=== PATIENT | male | born 1995 | race Caucasian/White ===

== ENCOUNTER 2024-05-31 07:59 | Outpatient (REF) | payer OTHER, SELFPAY ==
[2024-05-31 10:20] LABS: Platelet Count 330 X10*3/uL (160-400)
[2024-05-31 11:24] LABS: Creatinine Urine 175.96 mg/dL; Microalbum/Creatinine Ratio Ur 2.8 ug/mg cr (<30)
[2024-05-31 12:13] LABS: Alanine Aminotransferase 77 U/L (0-40); Albumin Level 4.5 g/dL (3.5-5.0); Alkaline Phosphatase 94 U/L (39-117); Anion Gap 10 (12-20); Aspartate Amino Transferase 46 U/L (5-37); Blood Urea Nitrogen 17 mg/dL (9-16); Calcium 9.3 mg/dL (8.4-10.2); Carbon Dioxide 25 mmol/L (22-29); Chloride 109 mmol/L (96-108); Cholesterol 205 mg/dL (<200); Estimated Glomerular Filt Rate > 60; Glucose Random 73 mg/dL (60-115); HDL Cholesterol 38 mg/dL (>40); LDL Cholesterol Calculated 158 mg/dL (<100); Potassium 4.3 mmol/L (3.3-5.1); Sodium 140 mmol/L (135-145); Triglycerides 47 mg/dL (<150)
[2024-05-31 12:29] LABS: Bilirubin Total 0.3 mg/dL (0.0-1.0)
[2024-06-01 22:48] LABS: LDL Cholesterol Direct 171 mg/dL (<100)
== END 2024-05-31 08:00 | disposition home or self-care (01) ==
LOC: HO.LAB 07:59
PROVIDERS: Visit Provider Student in an Organized Health Care Education/Training Program
DX: E10.65 Type 1 diabetes mellitus with hyperglycemia (principal)
CPT/HCPCS: 36415; 80053; 80061; 82043; 82570; 82947; 83036; 83721; 84443; 85049; 99202

== ENCOUNTER 2024-05-31 07:59 | Outpatient (AMB) | payer OTHER, SELFPAY ==
--- NOTE | 2024-05-31 08:01 | MHC.OFFVIS ---
Vital Signs 05/31/24 08:04 Height 5 ft 10 in Weight 225 lb 15.581 oz BMI 32.4 BP 124/76 Blood Pressure Location Lt brachial Position Sitting Pulse 98 Pulse Source Pulse Oximeter Intake Visit Reasons: Type 1 DM Intake Note: New patient present today for Type 1 Diabetes Mellitus. Last Diabetic eye exam: 2022 Last Podiatry Visit: Doesn't have one Random Glucose: 72 mg/dl HgA1C: 7.5% Steam Fitter Required: No Accompanied by: Self / Same As Patient Allergies sulfamethoxazole [From Bactrim] Allergy (Mild, Verified 05/31/24 08:09) rash trimethoprim [From Bactrim] Allergy (Mild, Verified 05/31/24 08:09) rash Medication List - Last Reconciled 05/31/24 by Yeny Cox MD insulin degludec (Tresiba FlexTouch U-100 insulin) 5 units subcut DAILY insulin lispro (Humalog KwikPen (U-100) Insulin) 5 units subcut TID HPI Comments Details: 29-year-old with Type 1 DM here today to establish care. History of diabetes Diagnosed at 3 years of age Was previously following with [facility] endocrinology ,doesnt remember name Last visit was Prior therapy: Used to be on the pump 18 or 20 years ago, and then again tried in 2014 and says says he couldnt make sense of any of it Current regimen: Tresiba 40 units daily in the morning (sometimes spilts it up) , forgets also sometimes Humalog Kwikpen 1:8 carb ratio , says he uses up to 80 units in a day of humalog when corrections are included When we mention that he doesnt have a meter so how does he do corrections I feel it in my head like I can feel it when its 300 Denies any symptoms of hyperglycemia including polyphagia, polyuria, polydipsia. Denies any hypoglycemic symptoms. has hypoglycemic awareness and symptoms in 70s. Last severe hypoglycemic episode : 2 months ago passed out blood sugar in the 30s , required help Says no other episodes SMBG's No meter Last checked blood sugar months ago, lost my meter Complications Eye exam: Last eye exam was 2022. No retinopathy Neuropathy: No neuropathy Kidney disease: no history Macrovascular complications: No history of macrovascular complications. A1c poc today 7.5% Statin:no MELVIN/ARB: no Weight : 225 lbs , stable Exercise: active at work , goes to gym two times a week ? sometimes not at all , irregular Diet control: Breakfast : 3 times a week : chinese muffin with cream cheese Lunch : variable time between work pizza mostly, a large pizza , soda sometimes diet coke Dinner : lava cakes , parmesan bites whatever from work He has never had any hospitalizations for hyperglycemia/hypoglycemia. 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 Was in [employer] for [employer] but dropped out during covid Lives with mom and step dad Physical exam General: sitting comfortably in no acute distress HEENT: normocephalic/atraumatic, moist oral mucosa Neck: supple, symmetrical Cardiac: normal heart sounds Pulm: normal breath sounds B/L, no added breath sounds Abd: not distended, no tenderness Extremities: no edema, no signs of myxedema Neuro: AAO x3, Speech: normal, no facial droop, moving all 4 extremities Skin: no rash Foot exam: intact sensation to monofilament, intact pulses, intact vibration [facility] Medical History (Updated 05/31/24 @ 09:20 by Yeny Cox MD) Type 1 diabetes mellitus Physical Exam Vital Signs: Last Vital Signs Pulse 98 05/31/24 08:04 BP 124/76 05/31/24 08:04 BMI result Body Mass Index 32.4 Results AMB Hemoglobin A1c AMB Hemoglobin A1c 7.5 % Last Edit by SHRUTHI Cao on 05/31/24 08:54 Results Reviewed Results Reviewed: Laboratory Last Values Glucose (Clinic) 72 mg/dL (60-115) 05/31/24 08:12 Assessment & Plan Assessment & Plan (1) Type 1 diabetes mellitus: Code(s): E10.9 - Type 1 diabetes mellitus without complications Category: Medical Qualifiers: Diabetes mellitus complication status: with hyperglycemia Qualified Code(s): E10.65 - Type 1 diabetes mellitus with hyperglycemia Plan: 29-year-old male with past medical history significant for celiac disease, bipolar disorder, type 1 diabetes mellitus without any long-term complications, who is coming in today to establish care, was diagnosed with type 1 diabetes mellitus at the age of 3. His A1c today 7.5%. A1c from January 2024 was 6.4%. He has clearly had worsened control recently. However I do not have any data for him today, he has not been checking his blood sugars. A large part of the visit was spent providing education to the patient regarding complications of hyperglycemia complications and risks of hypoglycemia, risk of injecting insulin without checking blood sugars, hypoglycemia education, DKA education, importance of adherence to medications. He seems to have a lot of hesitation regarding new technology but he is willing to try. He has been on insulin pump before but that was at least last 10 years ago. I reassured him that there is a lot of more sophisticated now with Diabetes technology and he is willing to give it a chance. I will have him see our clinical document improvement educator for evaluation for insulin pump. He would be a good candidate for ilet or Omnipod 5. I will also have him see our hvac controls technician. He does not he have any prescriptions currently nodule in a prescription for a meter. All prescriptions for insulin, glucose monitoring supplies, ketone strips, dextrose tablets, glucagon, CGM device sent to pharmacy. Plan: -continue Tresiba 40 units daily -continue Humalog with carb ratio 1:8, and asked him to restart using his previous correction factor of 01:20 for now. -follow up in 2 weeks with glucometer data by checking blood sugars 4 times a day for us to adjust his insulin -clinical document improvement educator referral placed -nutrition referral placed -overdue for eye visit, no history of retinopathy, reiterated to him to reestablish with a his eye doctor -does not see soundscriber mechanic, foot exam unremarkable today -ordered lipid panel, urine microalbumin, platelets, comprehensive metabolic panel, TSH Plan I spent 60 minutes in reviewing the record, seeing the patient and documenting in the medical record. Orders: Orders Lipid Panel Today E10.9 - Type 1 diabetes mellitus without complications Microalbumin, Random (w Creat) Today E10.9 - Type 1 diabetes mellitus without complications TSH reflex Free T4 Today E10.9 - Type 1 diabetes mellitus without complications Platelet Count Today E10.9 - Type 1 diabetes mellitus without complications AMB Hemoglobin A1c Today E10.9 - Type 1 diabetes mellitus without complications, Z13.9 - Encounter for screening, unspecified LDL Cholesterol Direct Today E10.9 - Type 1 diabetes mellitus without complications Comprehensive Met. Panel Today E10.9 - Type 1 diabetes mellitus without complications Referrals Diabetes Education Referral E10.9 - Type 1 diabetes mellitus without complications Patient Transport Officer Nutrition Referral E10.9 - Type 1 diabetes mellitus without complications Medications: New blood-glucose meter,continuous (Dexcom G7 Ota) As directed every 10 days Diagnosis code E10.9 1 ea 0RF blood-glucose meter (OneTouch Verio Flex Meter) As directed check blood sugar four times a day Diagnosis code E10.9 1 ea 0RF acetone (urine) test (Ketone Care strips) As directed check urine when blood sugar greater than 250 mg/dl Diagnosis code E10.9 100 ea 3RF pen needle, diabetic (BD Ultra-Fine Micro Pen Needle) As directed to inject insulin 4 times a day 200 ea 3RF insulin lispro (Humalog KwikPen (U-100) Insulin) up to 80 units subcutaneously 3 times a day; 15 mL 2RF glucagon 3 mg/actuation 3 mg intranasal ONCE 2 ea 1RF lancets (Pepperfry.comTouch Delica Plus Lancet) As directed check blood sugar four times a day Diagnosis code E10.9 100 ea 5RF blood-glucose sensor (Dexcom G7 Sensor device) As directed every 10 days Diagnosis code E10.9 6 ea 5RF blood sugar diagnostic (OneTouch Verio test strips) As directed check blood sugar four times a day Diagnosis code E10.9 100 ea 4RF dextrose until symptoms of low blood sugar are controlled 4 grams (4 x 1 gram) PO Q15M PRN 60 tabs 2RF hypoglycemia insulin degludec (Tresiba FlexTouch U-100 insulin) 40 units (0.4 mL) subcut DAILY 45 mL 1RF Patient Instructions: Check blood sugars daily four times a day fasting and premeals Check premeal 15 mins prior to eating and give bolus insulin 15 mins before eating Continue Tresiba 40 units daily for now till we adjust based on readings Humalog carb ratio 1:8 and correction 1:20 for now till we adjust Come back in 2 weeks with your meter so we can check the readings Please bring your meter to every appointment with me and educater See clinical document improvement educator See hvac controls technician See eye doctor Rule of 15 Treatment for Hypoglycemia (Low blood sugar) If your blood glucose is low (70 and below)*, follow the steps below to treat: Eat or drink something from the list below equal to 15 grams of carbohydrate (carb). Rest for 15 minutes Re-check your blood glucose. If it is still low, (below 70), repeat step 1 above. ? If your next meal is more than an hour away, you will need to eat one carbohydrate choice as a snack to keep your blood glucose from going low again. ?If you can't figure out why you have low blood glucose, call your healthcare provider, as your medicine may need to be adjusted. ?Always carry something with you to treat an insulin reaction. Use food from the list below. ? Foods equal to One Carbohydrate Choice (15 grams of carbohydrate): 3 Glucose ?tablets or 4 Dextrose tablets 4 ounces of fruit juice 5-6 ounces (about 1/2 can) of regular soda such as Coke or Pepsi ? 7-8 gummy or regular Life Savers ? 1 Tbsp. of sugar or jelly NOTE: If your blood sugar is less than 50, double the portion above for a total of 30 gm. ?Carbohydrate. ? Follow meal plan of 45-60 g of consistent carbohydrates at 3 meals each day and 15 g of carbohydrate at 1-2 snacks each day. Ketone strips sent Coding Level of Care Code New Pt Level 5 (75573) Complex EM visit Add On G2211 Diagnoses Type 1 diabetes mellitus with hyperglycemia E10.65 Diabetes mellitus complication status: with hyperglycemia Time Spent (min) 60
[2024-05-31 08:04] VITALS: BP 124/76; PULSE 98; BMI 32.4
[2024-05-31 08:16] LABS: Glucose, Whole Blood 72 mg/dL (60-115)
== END 2024-05-31 09:12 | disposition home or self-care (01) ==
PROVIDERS: Visit Provider Student in an Organized Health Care Education/Training Program
DX: E10.9 Type 1 diabetes mellitus without complications (principal); E10.65 Type 1 diabetes mellitus with hyperglycemia; Z13.9 Encounter for screening, unspecified
CPT/HCPCS: 99205; G2211

== ENCOUNTER 2024-06-08 13:12 | Outpatient (AMB) | payer OTHER, SELFPAY ==
--- NOTE | 2024-06-08 13:16 | A.OFFVIS_ITS ---
VS Expanded 06/08/24 13:17 Height 5 ft 10 in Weight 227 lb 2.5 oz BMI 32.6 Intake Visit Reasons: Type 1 diabetes mellitus without complications Allergies sulfamethoxazole [From Bactrim] Allergy (Mild, Verified 05/31/24 08:09) rash trimethoprim [From Bactrim] Allergy (Mild, Verified 05/31/24 08:09) rash Nutrition Presentation Details: Pt presents for MNT for T1DM dx around the age of 3 yo. Pt was referred by senior stock plan administrator Pt reports in the past was ordering foods from [employer] Typical meal routine B: egg sandwich on whole grain bread or white bread, milk or water Lunch may skip dinner: fast food meal (pizza mostly with variety of toppings) snack: chips food frequency fruits: 0-1/ vegetables: 1-2 x/wk dairy: 3-4 serving/d starches > 20 fish:not including Pt reports as a child he was dx with celiac but for years he has not followed gluten free Pt reports monitoring blood sugar 2 times a week Pt reports int he past he was carb counting and taking insulin according to carbs, he is no longer doing that BS Monitoring Most Recent Diabetes Results: Microalb/Creat Ratio 2.8 ug/mg cr (<30) 05/31/24 Cholesterol 205 mg/dL (<200) H 05/31/24 HDL Cholesterol 38 mg/dL (>40) L 05/31/24 Triglycerides 47 mg/dL (<150) 05/31/24 Creatinine 0.90 mg/dL (0.5-1.4) 05/31/24 Blood Urea Nitrogen 17 mg/dL (9-16) H 05/31/24 Sodium 140 mmol/L (135-145) 05/31/24 Potassium 4.3 mmol/L (3.3-5.1) 05/31/24 Chloride 109 mmol/L (96-108) H 05/31/24 Carbon Dioxide 25 mmol/L (22-29) 05/31/24 Calcium 9.3 mg/dL (8.4-10.2) 05/31/24 AST 46 U/L (5-37) H 05/31/24 ALT 77 U/L (0-40) H 05/31/24 Total Protein 7.0 g/dL (6.5-8.0) 05/31/24 Albumin 4.5 g/dL (3.5-5.0) 05/31/24 XVA-Sknfjie-Vo.Jeor Equation Height: 5 ft 10 in Weight: 227 lb Resting Metabolic Rate: 1992.36 Calculated Activity Level: Mild Activity Calories Needed to Maintain Weight: 2739.50 Diagnosis Nutrition problem #1: food nutri know defi (regarding high fiber foods and relationship of fat/protein to glucose level/cholesterol) As related to (etiology) #1: diagnosis As evidenced by (sign/symptom) #1: knowledge deficit of diet Monitoring/Goals Nutrition problem monitoring: total PRO intake (and fiber rich foods) Learning/Education Readiness to learn: fair [facility] Medical History (Updated 05/31/24 @ 09:20 by Yeny Cox MD) Type 1 diabetes mellitus Assessment & Plan Assessment & Plan (1) Type 1 diabetes mellitus: Code(s): E10.9 - Type 1 diabetes mellitus without complications Category: Medical Qualifiers: Diabetes mellitus complication status: with hyperglycemia Qualified Code(s): E10.65 - Type 1 diabetes mellitus with hyperglycemia Plan: Wt: 103 Kg (05/2024 ) Est kcal needs as per MSJ: 2700 (40% carb, 30% protein/fat) Est fluid needs as per 25-30 ml/d: 3100 Est prot per day as per 1 g/kg bw: 103 Recommend fiber intake : 8-10 g per day and gradually increase to 25-28 g per day for women and 35-38 g for men or as tolerated Recommend sodium intake per day : less than 2300 mg Educated patient on: ( R = reviewed V = verbalizes understanding N/R = needs review N/A = not applicable * Food sources of carbohydrate, adequate serving sizes and its role in various health conditions: R V N/R * Differences between complex carbohydrates a simple carbohydrates, role of fiber in diet: R * Lean protein sources of foods: R * Differences between types of fats and role in diet (mono on saturated fat fatty acids, saturated fatty acids, trans fats): R * Food sources of sodium in salt and healthy modifications for heart health in kidney health: R V R/V * Vitamins and minerals: R V N/R * Healthy plate method concept: R V N/R * Physical activity: Benefits a precaution: R V N/R * Hypoglycemia protocol (rule of 15): R V N/R * Dietary prevention of Hyperglycemia: R V R/V * carb counting - NOT discussed today, Topic reinforced today fiber rich and lean protein foods options to include Patient Instructions: Combine protein foods and fiber rich foods, example snack on nuts/mixed nuts in place of chips/crackers e choose pizza with poultry and vegetables See meal ideas consisting of lean protein and fiber rich food Coding Level of Care Code Nutr Indiv Intake (42374) Diagnoses Type 1 diabetes mellitus with hyperglycemia E10.65 Diabetes mellitus complication status: with hyperglycemia Time Spent (min) 30
[2024-06-08 13:17] VITALS: BMI 32.6
[2024-06-09 14:56] VITALS: BMI 32.6
== END 2024-06-08 14:01 | disposition home or self-care (01) ==
PROVIDERS: Visit Provider Dietitian, Registered
DX: E10.65 Type 1 diabetes mellitus with hyperglycemia (principal)

== ENCOUNTER → 2024-06-08 13:12 | Outpatient (BNVA) | payer OTHER, SELFPAY | PROVIDERS: Visit Provider Dietitian, Registered | DX: E10.65 Type 1 diabetes mellitus with hyperglycemia (principal) | CPT/HCPCS: 97802 ==

== ENCOUNTER 2024-06-14 10:37 | Outpatient (AMB) | payer OTHER, SELFPAY ==
[2024-06-14 10:42] VITALS: BP 106/70; PULSE 74; BMI 32.6
--- NOTE | 2024-06-14 10:42 | MHC.OFFVIS ---
Vital Signs 06/14/24 10:42 Height 5 ft 10 in Weight 227 lb 4.745 oz BMI 32.6 BP 106/70 Blood Pressure Location Rt brachial Position Sitting Pulse 74 Pulse Source Pulse Oximeter Intake Visit Reasons: T1DM Intake Note: Patient present today for Type 2 Diabetes Mellitus. Last Diabetic eye exam: Over 2 years ago Last Podiatry Visit: Doesn't have one Random Glucose: 139 mg/dl HgA1C: 7.5% 05/31/24 Property Claim Rep Required: No Accompanied by: Self / Same As Patient Allergies sulfamethoxazole [From Bactrim] Allergy (Mild, Verified 06/14/24 10:48) rash trimethoprim [From Bactrim] Allergy (Mild, Verified 06/14/24 10:48) rash HPI Comments Details: 29-year-old with Type 1 DM here today for follow up. Last visit 05/31/24 History of diabetes Diagnosed at 3 years of age Was previously following with [facility] endocrinology ,doesnt remember name Prior therapy: Used to be on the pump 18 or 20 years ago, and then again tried in 2014 and says says he couldnt make sense of any of it Current regimen: Tresiba 40 units daily in the morning (sometimes spilts it up) , forgets also sometimes Humalog Kwikpen 1:8 carb ratio , says he uses up to 80 units in a day of humalog when corrections are included When we mention that he doesnt have a meter so how does he do corrections I feel it in my head like I can feel it when its 300 Denies any symptoms of hyperglycemia including polyphagia, polyuria, polydipsia. Denies any hypoglycemic symptoms. has hypoglycemic awareness and symptoms in 70s. Last severe hypoglycemic episode : March 2024 passed out blood sugar in the 30s , required help, 06/11/24 BG of 45 Says no other episodes Interval history Labs from 05/31/2024 showed elevated LDL cholesterol level of 171, goal LDL for him is less than 70 mg/dL. Per labs 05/31/2024 nafld score -3 fib 4 score 0.49 EGFR greater than 60, urine microalbumin creatinine ratio 2.8 He got his Dexcom sensor and balancing machine set up worker 3 days ago. Not enough data for us to interpret however he did not even bring his balancing machine set up worker today for me to connect him to the clinic for us to download his pump. He has a upcoming appointment on 06/17/2024 with the educator, hopefully we will get some sensor data on that day, I have asked him to bring his balancing machine set up worker. Saw implement mechanic 06/08/2024 Complications Eye exam: Last eye exam was 2022. No retinopathy Neuropathy: No neuropathy Kidney disease: no history Macrovascular complications: No history of macrovascular complications. A1c poc 05/31/2024 7.5% Statin:no MELVIN/ARB: no Weight : 225 lbs , stable Exercise: active at work , goes to gym two times a week ? sometimes not at all , irregular Diet control: Breakfast : 3 times a week : british muffin with cream cheese Lunch : variable time between work pizza mostly, a large pizza , soda sometimes diet coke Dinner : lava cakes , parmesan bites whatever from work He has never had any hospitalizations for hyperglycemia/hypoglycemia. 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 Was in [employer] for [employer] but dropped out during covid Lives with mom and step dad Physical exam General: sitting comfortably in no acute distress HEENT: normocephalic/atraumatic, moist oral mucosa Neck: supple, symmetrical Cardiac: normal heart sounds Pulm: normal breath sounds B/L, no added breath sounds Abd: not distended, no tenderness Extremities: no edema, no signs of myxedema Neuro: AAO x3, Speech: normal, no facial droop, moving all 4 extremities Skin: no rash Foot exam 05/31/2024: intact sensation to monofilament, intact pulses, intact vibration Laboratory Tests 05/31/24 05/31/24 05/31/24 08:54 09:29 09:33 Plt Count 330 Creatinine 0.90 Estimated GFR > 60 Random Glucose 73 Hgb A1c (Clinic) 7.5 H Calcium 9.3 AST 46 H ALT 77 H Alkaline Phosphatase 94 Cholesterol 205 H LDL Cholesterol Direct 171 H LDL Cholesterol, Calc 158 H HDL Cholesterol 38 L TSH 1.10 Urine Creatinine 175.96 Urine Microalbumin 5.0 Microalb/Creat Ratio 2.8 [facility] Medical History (Updated 06/14/24 @ 11:20 by Yeny Cox MD) Obesity (BMI 30.0-34.9) HLD (hyperlipidemia) Type 1 diabetes mellitus Assessment & Plan Assessment & Plan (1) Type 1 diabetes mellitus: Code(s): E10.9 - Type 1 diabetes mellitus without complications Category: Medical Qualifiers: Diabetes mellitus complication status: with hyperglycemia Qualified Code(s): E10.65 - Type 1 diabetes mellitus with hyperglycemia Plan: 29-year-old male with past medical history significant for celiac disease, bipolar disorder, type 1 diabetes mellitus without any long-term complications, who is coming in today to establish care, was diagnosed with type 1 diabetes mellitus at the age of 3. His A1c 05/31/2024 7.5%. A1c from January 2024 was 6.4%. He has clearly had worsened control recently. He started wearing the Dexcom 3 days ago and forgot to bring his balancing machine set up worker to clinic today. Could not download data. He did have some numbers on his glucose meter which were very variable with some numbers in the 200s, he also had a hypoglycemic episode with a blood glucose level of 45 pre meal on 06/11/2024. I expressed my concern on regarding hypoglycemic episodes and how dangerous they are. Discussed with him importance confirming hypoglycemic numbers on the sensor with a fingerstick always. Reviewed hypoglycemic management. I will bring him back for close follow up in 4 weeks to unless CGM data and make insulin adjustments. During last visit He seems to have a lot of hesitation regarding new technology but he is willing to try. He has been on insulin pump before but that was at least last 10 years ago. I reassured him that there is a lot of more sophisticated now with Diabetes technology and he is willing to give it a chance. He seems a lot more motivated today. He has a an appointment coming up on 06/17/2024 with our para educator for evaluation for insulin pump. He would be a good candidate for ilet or Omnipod 5. 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 Plan: -continue Tresiba 40 units daily -continue Humalog with carb ratio 1:8, and continue correction factor of 01:20 for now. -follow up in 4 weeks with CGM data -para educator referral appointment coming up for evaluation of insulin pump -nutrition follow up coming up for carb counting -overdue for eye visit, no history of retinopathy, reiterated to him to reestablish with a his eye doctor -does not see folder and notcher, foot exam unremarkable 05/31/2024 (2) HLD (hyperlipidemia): Code(s): E78.5 - Hyperlipidemia, unspecified Category: Medical Qualifiers: Hyperlipidemia type: mixed hyperlipidemia Qualified Code(s): E78.2 - Mixed hyperlipidemia Plan: Labs from 05/31/2024 showed elevated LDL cholesterol level of 171, goal LDL for him is less than 70 mg/dL. Plan: -start atorvastatin 20 mg daily -we will plan to repeat lipid panel in 3 months sometime around August 2024 -counseled about side effects of muscle aches, rare side effects of muscle injury and liver toxicity (3) Obesity (BMI 30.0-34.9): Code(s): E66.811 - Obesity, class 1 Category: Medical Plan: BMI 32.6 kg per m2, weight 227 lb. Discussed importance of 150 minutes of cardio per week +2-3 days of resistance training Discussed role of obesity in diabetes mellitus Plan I spent 30 minutes in reviewing the record, seeing the patient and documenting in the medical record. Medications: New atorvastatin 20 mg PO BEDTIME 90 tabs 3RF Patient Instructions: Continue insulin as it is Please discuss insulin pump options during your upcoming visit with Nusrat Bring balancing machine set up worker to all appointments Start atorvastatin 20 mg daily at bedtime Coding Level of Care Code Est Pt Level 4 (44315) Complex EM visit Add On G2211 Diagnoses Type 1 diabetes mellitus with hyperglycemia E10.65 Diabetes mellitus complication status: with hyperglycemia Mixed hyperlipidemia E78.2 Hyperlipidemia type: mixed hyperlipidemia Obesity (BMI 30.0-34.9) E66.811 Time Spent (min) 30
[2024-06-14 10:54] LABS: Glucose, Whole Blood 139 mg/dL (60-115)
== END 2024-06-14 11:11 | disposition home or self-care (01) ==
LOC: HO.ENCR 10:37
PROVIDERS: Visit Provider Student in an Organized Health Care Education/Training Program
DX: E10.65 Type 1 diabetes mellitus with hyperglycemia (principal); E78.2 Mixed hyperlipidemia; E66.811 Obesity, class 1
CPT/HCPCS: 99214; G2211

== ENCOUNTER → 2024-06-14 10:37 | Outpatient (BNVA) | payer OTHER, SELFPAY | PROVIDERS: Visit Provider Student in an Organized Health Care Education/Training Program | DX: E10.65 Type 1 diabetes mellitus with hyperglycemia (principal); E78.2 Mixed hyperlipidemia; E66.811 Obesity, class 1; Z79.4 Long term (current) use of insulin; Z79.84 Long term (current) use of oral hypoglycemic drugs | CPT/HCPCS: 82947; 99212 ==

== ENCOUNTER 2024-06-17 15:01 | Outpatient (AMB) | payer OTHER, SELFPAY ==
--- NOTE | 2024-06-17 15:28 | A.OFFVIS_ITS ---
Intake Intake Visit Reasons: Type 1 diabetes mellitus without complications Pharmacology Associate Required: No Accompanied by: Self / Same As Patient Allergies sulfamethoxazole [From Bactrim] Allergy (Mild, Verified 06/14/24 10:48) rash trimethoprim [From Bactrim] Allergy (Mild, Verified 06/14/24 10:48) rash HPI Comprehensive Diabetes Asmnt Most Recent Diabetes Results: Microalb/Creat Ratio 2.8 ug/mg cr (<30) 05/31/24 Cholesterol 205 mg/dL (<200) H 05/31/24 HDL Cholesterol 38 mg/dL (>40) L 05/31/24 Triglycerides 47 mg/dL (<150) 05/31/24 Creatinine 0.90 mg/dL (0.5-1.4) 05/31/24 Blood Urea Nitrogen 17 mg/dL (9-16) H 05/31/24 Sodium 140 mmol/L (135-145) 05/31/24 Potassium 4.3 mmol/L (3.3-5.1) 05/31/24 Chloride 109 mmol/L (96-108) H 05/31/24 Carbon Dioxide 25 mmol/L (22-29) 05/31/24 Calcium 9.3 mg/dL (8.4-10.2) 05/31/24 AST 46 U/L (5-37) H 05/31/24 ALT 77 U/L (0-40) H 05/31/24 Total Protein 7.0 g/dL (6.5-8.0) 05/31/24 Albumin 4.5 g/dL (3.5-5.0) 05/31/24 [facility] Medical History (Updated 06/14/24 @ 11:20 by Yeny Cox MD) Obesity (BMI 30.0-34.9) HLD (hyperlipidemia) Type 1 diabetes mellitus Assessment & Plan Assessment & Plan (1) Type 1 diabetes mellitus: Code(s): E10.9 - Type 1 diabetes mellitus without complications Qualifiers: Diabetes mellitus complication status: with hyperglycemia Qualified Code(s): E10.65 - Type 1 diabetes mellitus with hyperglycemia Plan: Pump Assessment: Type of DM: Type 1 Dx at age: 3 Previous DKA: Current Insulin Rx: MDI Patient takes insulin as prescribed: Patient is reports stacking correction doses which leads to hypoglycemia Patient? checks BG Dexcom G7 Downloaded meter today Patient above target 23% At target 66% Below target 11% Average glucose for the past 7 days 140 mg/dL Patient? reports glycemic control as: good Most recent Hgb A1C: 7.5% Frequency of low BG: daily Low BG treatment: Cedar Juice Frequency of high BG: daily Does patient check Ketones? no Has pt been on a pump in the past? Yes He is currently using insulin to carb ratio of 1-10 Correction factor 1-20 Corrects to 150 mg/dL Patient has been anxious about his hyperglycemia which has led him to stack correction doses. This may have been exacerbated by him starting the Dexcom G7 and seeing prolonged episodes of hypoglycemia Instructed patient on action of Humalog, suggested he he wait at least 2 hours between correction doses Patient also reports he has been taking mealtime insulin after meals, instructed patient to move Humalog to before meals When patient has hypoglycemia he over treats which leads to hyperglycemia. Then he over corrects which leads to more hypoglycemia. At next visit we review rules about testing for ketones Reviewed insulin pump basics today with Patient. Explained pros and cons of insulin pumps. Showed pt various pumps, infusion sets, and cgms currently available. Reviewed need to wear pump 24/7 and need to change infusion set every 3 days. Also stressed importance of frequent BG checks, 4x daily minimum or use pump that is integrated with CGM.? TDD:80 units Pt is interested in the iLet Patient demonstrated motivation for continued insulin pump education and understands the need to complete education prior to starting insulin pump for best outcome. Will follow up for continued education. Portions of this note were created using voice recognition software, please excuse any words or phrases that may have been misinterpreted. Patient Instructions: Follow-up with school vocational educator in 2 weeks Take mealtime insulin prior to meals Wait 2 hours between correction doses for hyperglycemia Treat hypoglycemia with rule of 15s Contact Diabetes Education nurse with questions or concerns Coding Level of Care Code Est Pt Level 1 (35174) Diagnoses Type 1 diabetes mellitus with hyperglycemia E10.65 Diabetes mellitus complication status: with hyperglycemia
== END 2024-06-17 15:51 | disposition home or self-care (01) ==
PROVIDERS: Visit Provider Registered Nurse Diabetes Educator
DX: E10.65 Type 1 diabetes mellitus with hyperglycemia (principal)

== ENCOUNTER → 2024-06-17 15:01 | Outpatient (BNVA) | payer OTHER, SELFPAY | PROVIDERS: Visit Provider Registered Nurse Diabetes Educator | DX: E10.65 Type 1 diabetes mellitus with hyperglycemia (principal); Z79.4 Long term (current) use of insulin | CPT/HCPCS: 99211 ==

== ENCOUNTER 2024-07-26 09:37 | Outpatient (AMB) | payer OTHER, SELFPAY ==
[2024-07-26 09:45] VITALS: BP 128/78; PULSE 76; O2SAT 96; BMI 32.7
--- NOTE | 2024-07-26 09:45 | A.OFFVIS_ITS ---
Vital Signs 3 07/26/24 09:45 Height 5 ft 10 in Weight 227 lb 15.327 oz BMI 32.7 BP 128/78 Blood Pressure Location Lt brachial Position Sitting Pulse 76 Pulse Source Pulse Oximeter Pulse Oximetry (%) 96 Oxygen Delivery Method Room Air Intake Visit Reasons: T1DM Intake Note: Patient present today for Type 1 Diabetes Mellitus Last Diabetic eye exam: Over 3 years ago Last Podiatry Visit: Doesn't have one Random Glucose: 70 mg/dl @9:52am 75 mg/dl @10:15am HgA1C: 7.5% 05/31/24 Electronics Lead Required: No Accompanied by: Self / Same As Patient Allergies sulfamethoxazole [From Bactrim] Allergy (Mild, Verified 07/26/24 09:50) rash trimethoprim [From Bactrim] Allergy (Mild, Verified 07/26/24 09:50) rash HPI Comments Details: 29-year-old with Type 1 DM here today for follow up. Note: Blood glucose was 70 at 09:55, patient given 4 glucose tablets, he said he did have a can of juice 10 minutes before coming in, he was only able to eat 2 glucose tablets, repeat check at 10:15, blood sugar came up to 75 mg/dL. Asked him to take the rest of the 2 glucose tablets as well especially since he will be driving back. Patient very hesitant and says it is too sweet, I told him it is sugar to bring up his blood glucose reading. He is chewing on 1 on them while walking out. History of diabetes Diagnosed at 3 years of age Was previously following with [facility] endocrinology ,doesnt remember name Prior therapy: Used to be on the pump 18 or 20 years ago, and then again tried in 2014 and says says he couldnt make sense of any of it Current regimen: Tresiba 40 units daily in the morning (sometimes spilts it up) , forgets also sometimes Humalog Kwikpen 1:10 carb ratio , correction factor of 01:20 for now. Corrects to 150. When we mention that he doesnt have a meter so how does he do corrections I feel it in my head like I can feel it when its 300 Denies any symptoms of hyperglycemia including polyphagia, polyuria, polydipsia. Denies any hypoglycemic symptoms. has hypoglycemic awareness and symptoms in 70s. Last severe hypoglycemic episode : March 2024 passed out blood sugar in the 30s , required help, 1/17/25 BG of 45 Says no other episodes Interval history Dexcom data downloaded from July 07 to July 20 2024 Time CGM active 66% Average glucose 157 mg/dL Standard deviation 73 mg/dL Coefficient of variation 46.6% G mi and/a Within target range 62% 18% in high range 12% very high range 5% lows, 3% very low Interpretation: Hyperglycemia, followed by hypoglycemia, I discussed with the educator, seems like he is stacking his insulin during her visit, which he was advised against. Patient has been anxious about his hyperglycemia which has led him to stack correction doses. This may have been exacerbated by him starting the Dexcom G7 and seeing prolonged episodes of hypoglycemia. Instructed patient on action of Humalog, suggested he he wait at least 2 hours between correction doses Patient also reports he has been taking mealtime insulin after meals, instructed patient to move Humalog to before meals When patient has hypoglycemia he over treats which leads to hyperglycemia. Then he over corrects which leads to more hypoglycemia. Expressed concerns about Dexcom giving him a rash because he pulled it out, I told him to take it off slowly and not pull it off. Labs from 05/31/2024 showed elevated LDL cholesterol level of 171, goal LDL for him is less than 70 mg/dL. Per labs 05/31/2024 nafld score -3 fib 4 score 0.49 EGFR greater than 60, urine microalbumin creatinine ratio 2.8 . He did not follow up with the educator after 1 visit. Saw advisory services associate 06/08/2024 Complications Eye exam: Last eye exam was 2022. No retinopathy Neuropathy: No neuropathy Kidney disease: no history Macrovascular complications: No history of macrovascular complications. A1c poc 05/31/2024 7.5% Statin:yes started May 2024 on MELVIN/ARB: no Weight : 227 lbs , stable Exercise: active at work , goes to gym two times a week ? sometimes not at all , irregular Diet control: Breakfast : 3 times a week : dominican muffin with cream cheese Lunch : variable time between work pizza mostly, a large pizza , soda sometimes diet coke Dinner : lava cakes , parmesan bites whatever from work He has never had any hospitalizations for hyperglycemia/hypoglycemia. 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 Was in 9+ but dropped out during covid Lives with mom and step dad Physical exam General: sitting comfortably in no acute distress HEENT: normocephalic/atraumatic, moist oral mucosa Neck: supple, symmetrical Cardiac: normal heart sounds Pulm: normal breath sounds B/L, no added breath sounds Abd: not distended, no tenderness Extremities: no edema, no signs of myxedema Neuro: AAO x3, Speech: normal, no facial droop, moving all 4 extremities Skin: no rash Foot exam 05/31/2024: intact sensation to monofilament, intact pulses, intact vibration Laboratory Tests 05/31/24 05/31/24 05/31/24 08:54 09:29 09:33 Plt Count 330 Creatinine 0.90 Estimated GFR > 60 Random Glucose 73 Hgb A1c (Clinic) 7.5 H Calcium 9.3 AST 46 H ALT 77 H Alkaline Phosphatase 94 Cholesterol 205 H LDL Cholesterol Direct 171 H LDL Cholesterol, Calc 158 H HDL Cholesterol 38 L TSH 1.10 Urine Creatinine 175.96 Urine Microalbumin 5.0 Microalb/Creat Ratio 2.8 [facility] Medical History (Updated 06/14/24 @ 11:20 by Yeny Cox MD) Obesity (BMI 30.0-34.9) HLD (hyperlipidemia) Type 1 diabetes mellitus Physical Exam Vital Signs: Last Vital Signs Pulse 76 07/26/24 09:45 BP 128/78 07/26/24 09:45 Pulse Ox 96 07/26/24 09:45 Oxygen Delivery Method Room Air 07/26/24 09:45 BMI result Body Mass Index 32.7 Office Procedures Glucose Monitoring Details Details: see HPI 14081 - Glucose monitoring, continuous-physician I&R Procedure code (CPT) selection complete Results Reviewed Results Reviewed: Laboratory Last Values Glucose (Clinic) 70 mg/dL (60-115) 07/26/24 09:53 Assessment & Plan Assessment & Plan (1) Type 1 diabetes mellitus: Code(s): E10.9 - Type 1 diabetes mellitus without complications Category: Medical Qualifiers: Diabetes mellitus complication status: with hyperglycemia Qualified Code(s): E10.65 - Type 1 diabetes mellitus with hyperglycemia Plan: 29-year-old male with past medical history significant for celiac disease, bipolar disorder, type 1 diabetes mellitus without any long-term complications, who is coming for fup s diagnosed with type 1 diabetes mellitus at the age of 3. His A1c 05/31/2024 7.5%. A1c from January 2024 was 6.4%. He has clearly had worsened control recently. Dexcom data downloaded which shows that he has been having a lot of hyperglycemia followed by hypoglycemia. It seems like he often does not give himself the log insulin 15 units before meals, again today reiterated to him importance of giving this 15 minutes before meals. He also over treats it is hyperglycemia with corrections often, and stack the insulin, discussed importance of not stacking insulin. This was also discussed with him during his educator visit. Seems like he has a poor understanding of these concepts. The plan was for him to go on an insulin pump, however he is not even completed his diabetes education completely in for now it is not safe for him to go on a pump with such poor understanding. He also seems to over treat his hypoglycemia resulting in hyperglycemia. We again discussed how to treat hypoglycemia today. I will bring him back for close follow up in 4 weeks to analyze CGM data and make insulin adjustments. Saw advisory services associate 06/08/2024, he has a lot of problem with carb counting as well which is why I think he would be a good candidate for eyelid pump, however he also has upcoming appointments with advisory services associate for better teaching of carb counting. Plan: -continue Tresiba 40 units daily -continue Humalog with carb ratio 1:10, and continue correction factor of 01:20 for now. -follow up in 4 weeks with CGM data -camera systems engineer make follow up and with advisory services associate as well -overdue for eye visit, no history of retinopathy, reiterated to him to reestablish with a his eye doctor -does not see security incident response engineer, foot exam unremarkable 05/31/2024 (2) HLD (hyperlipidemia): Code(s): E78.5 - Hyperlipidemia, unspecified Category: Medical Qualifiers: Hyperlipidemia type: mixed hyperlipidemia Qualified Code(s): E78.2 - Mixed hyperlipidemia Plan: Labs from 05/31/2024 showed elevated LDL cholesterol level of 171, goal LDL for him is less than 70 mg/dL. Started on atorvastatin 20 mg daily May 2024. Plan: -continue atorvastatin 20 mg daily -we will plan to repeat lipid panel in 3 months sometime around August 2024 (3) Obesity (BMI 30.0-34.9): Code(s): E66.811 - Obesity, class 1 Category: Medical Plan: BMI 32.6 kg per m2, weight 227 lb. Discussed importance of 150 minutes of cardio per week +2-3 days of resistance training Discussed role of obesity in diabetes mellitus Plan I spent 30 minutes in reviewing the record, seeing the patient and documenting in the medical record. Orders: Orders 2 AMB Glucose Monitoring Today E10.65 - Type 1 diabetes mellitus with hyperglycemia Patient Instructions: No dose changes made to insulin today. Please take your Humalog 15 minutes before you eat Make follow up with the educator and advisory services associate Do not take correction doses within 2 hours of each other Rule of 15 Treatment for Hypoglycemia (Low blood sugar) If your blood glucose is low (70 and below)*, follow the steps below to treat: Eat or drink something from the list below equal to 15 grams of carbohydrate (carb). Rest for 15 minutes Re-check your blood glucose. If it is still low, (below 70), repeat step 1 above. ? If your next meal is more than an hour away, you will need to eat one carbohydrate choice as a snack to keep your blood glucose from going low again. ?If you can't figure out why you have low blood glucose, call your healthcare provider, as your medicine may need to be adjusted. ?Always carry something with you to treat an insulin reaction. Use food from the list below. ? Foods equal to One Carbohydrate Choice (15 grams of carbohydrate): 3 Glucose ?tablets or 4 Dextrose tablets 4 ounces of fruit juice 5-6 ounces (about 1/2 can) of regular soda such as Coke or Pepsi ? 7-8 gummy or regular Life Savers ? 1 Tbsp. of sugar or jelly NOTE: If your blood sugar is less than 50, double the portion above for a total of 30 gm. ?Carbohydrate. ? Follow meal plan of 45-60 g of consistent carbohydrates at 3 meals each day and 15 g of carbohydrate at 1-2 snacks each day. Coding Level of Care Code Est Pt Level 4 (49290) Diagnoses Type 1 diabetes mellitus with hyperglycemia E10.65 Diabetes mellitus complication status: with hyperglycemia Mixed hyperlipidemia E78.2 Hyperlipidemia type: mixed hyperlipidemia Obesity (BMI 30.0-34.9) E66.811 CPT Codes Details - CPT: 20660 - Glucose monitoring, continuous-physician I&R ([id number])
[2024-07-26 09:56] LABS: Glucose, Whole Blood 70 mg/dL (60-115)
[2024-07-26 10:16] LABS: Glucose, Whole Blood 75 mg/dL (60-115)
--- OUTSIDE RECORDS SUMMARY | 2024-07-26 10:38 | XMS_ITS | Encounter Summary ---
Author Organization [facility] Address [address] [place] [phone] Phone Care Team Providers Care Dining Service Supervisor Name Role Phone Jeannine Arias MD Primary Care Provider [phone] Encounter Details Date Type Department Care Team (Late st Contact Info) Description 08/23/2011 Documentation [facility] [place] [address] [place] [address] Family Medicine, Physician [address] [place], [place] [id number] Social History Tobacco Use Types Packs/Day Years Used Date Smoking Tobacco: Never Assessed Sex and Gender Information Value Date Recorded Sex Assigned at Not on file Legal Sex Male 4:45 PM EDT Gender Identity Not on file Sexual Orientation Not on file documented as of this encounter Plan of Treatment Not on file documented as of this encounter Visit Diagnoses Not on filedocumented in this encounter Care Teams Dining Service Supervisor Relationship Specialty Start Date End Date Jeannine Arias MD [address] [place], [place] [address] [address] PCP - General 01/03/17 documented as of this encounter
--- OUTSIDE RECORDS SUMMARY | 2024-07-26 10:38 | XMS_ITS | Clinical Summary ---
Author Organization [facility] Address [address] [place] [address] Phone Care Team Providers Care Behavior Clinician Name Role Phone Jeannine Arias MD Primary Care Provider [phone] Immunizations Immunization Administration Dates Next Due DTP 09/02/1998, 5,1993,10/02,1993 H1N1 03/21/2009 Hep B, ped/adol 05/04/1994,1993,1993 Hib (PRP-T) 08/02/1994, 4,1993,08/02 IPV 09/02/1998, 4,1993,08/02 Influenza Split 04/24/2011,01/22/2010 Influenza, injectable, trivalent 009,02/09/2008,02/10/2007,04/10,04/03/2005,03/07/2004,03/19/2002 ,04/21/2001 MMR 08/22/1997,05/04/1994 Meningococcal Conj (Menactra) MCV4P 09/27/2011,0 07/24/2005 Pneumococcal Polysaccharide 02/20/2009 Td (adult) (MBL), 2 Lf tetan us toxoid, PF, adsorbed 04/20/2011 Tdap 07/24/2005 Varicella 11/25/2007,07/05/1996 Family History Relation Name Status Comments Maternal Grandfather Materna l grandfather: [place], Mother Alive Mother: Alive a nd well, Migraines Paternal Grandmother Paterna l grandmother: Cancer -breast, Social History Tobacco Use Types Packs/Day Years Used Date Smoking Tobacco: Never Comments:Never smoker Sex and Gender Information Value Date Recorded Sex Assigned at Not on file Legal Sex Male 4:45 PM EDT Gender Identity Not on file Sexual Orientation Not on file Last Filed Vital Signs Vital Sign Reading Time Taken Comments Blood Pressure 123/78 01/01/2014 12:00 AM EDT Pulse 69 12/31/2013 12:00 AM EDT Temperature 35.4 ??C (95.7 ??F) 01/05/2014 12:00 AM E DT Respiratory Rate - - Oxygen Saturation 96% 11/19/2011 12:00 AM EDT Inhaled Oxygen Concentration - - Weight 82.1 kg (181 lb) 01/05/2014 12:00 AM EDT Height 175.8 cm (5' 9.2 ) 12/31/2013 12:00 AM ED T Body Mass Index 26.57 12/31/2013 12:00 AM EDT Plan of Treatment Health Maintenance Due Date Last Done Comments DTaP,Tdap,and Td Vaccines (8 - Td or Tdap) 04/20/2021 04/20/2011, 07/24/2005, 09/02/1998, Additional history exists Influenza Vaccines (#1) 2023 04/24/20, 01/22/2010, 02/20/2009, Additional history exists COVID-19 Vaccine ( season) 2024 Hepatitis B Vaccines Completed 05/04/1994, 1993, 1993 HIB Vaccines Completed 08/02/1994, 11/23, 1993, Additional history exists MMR Vaccines Completed 08/22/1997, 05/04/1994 IPV Vaccines Completed 09/02/1998, 11/23, 1993, Additional history exists Varicella Vaccines Completed 11/25/2007, 07/05/1996 Pneumococcal Vaccine Aged Out 02/20/2009 No long er eligible based on patient's age to complete this topic Meningococcal Vaccine Completed 09/27/2011, 006 HPV Vaccines Aged Out No longer eligi ble based on patient's age to complete this topic Hepatitis A Vaccines Aged Out No long er eligible based on patient's age to complete this topic Men B Vaccine Aged Out No longer elig ible based on patient's age to complete this topic Care Teams Behavior Clinician Relationship Specialty Start Date End Date Jeannine Arias MD [address] [facility] [place] [address] PCP - General 01/03/17
--- OUTSIDE RECORDS SUMMARY | 2024-07-26 10:38 | XMS_ITS | Encounter Summary ---
Author Organization [facility] Address [address] [place] [phone] Phone Care Team Providers Care Ornamental Metal Worker Name Role Phone Jeannine Arias MD Primary Care Provider [phone] Encounter Details Date Type Department Care Team (Late st Contact Info) Description 01/03/2014 Documentation [facility] [place] [address] [place] [address] Family Medicine, Physician [address] [place], [place] [address] Social History Tobacco Use Types Packs/Day Years [...] on filedocumented in this encounter Care Teams Ornamental Metal Worker Relationship Specialty Start Date End Date Jeannine Arias MD [address] [place], [place] [address] [address] PCP - General 01/03/17 documented as of this encounter
--- OUTSIDE RECORDS SUMMARY | 2024-07-26 10:38 | XMS_ITS | Encounter Summary ---
Author Organization [facility] Address [address] [place] [phone] Phone Care Team Providers Care Office Rep Name Role Phone Jeannine Arias MD Primary Care Provider [phone] Encounter Details Date Type Department Care Team (Late st Contact Info) Description 06/18/2012 Documentation [facility] [place] [address] [place] [address] Family Medicine, Physician [address] [place], [place] [address] Social History Tobacco Use Types Packs/Day Years [...] on filedocumented in this encounter Care Teams Office Rep Relationship Specialty Start Date End Date Jeannine Arias MD [address] [place], [place] [address] [address] PCP - General 01/03/17 documented as of this encounter
--- OUTSIDE RECORDS SUMMARY | 2024-07-26 10:38 | XMS_ITS | Encounter Summary ---
Author Organization [facility] Address [address] [place] [address] Phone Care Team Providers Care Riveter Automobile Brakes Name Role Phone Jeannine Arias MD Primary Care Provider [phone] Encounter Details Date Type Department Care Team (Late st Contact Info) Description 01/09/2017 Conversion Encounter [facility] [place] [address] [place] [address] Social History Tobacco Use Types Packs/Day Years [...] on filedocumented in this encounter Care Teams Riveter Automobile Brakes Relationship Specialty Start Date End Date Jeannine Arias MD [address] [place] [address] PCP - General 01/03/17 documented as of this encounter
--- OUTSIDE RECORDS SUMMARY | 2024-07-26 10:38 | XMS_ITS | Encounter Summary ---
Author Organization [facility] Address [address] [place] [phone] Phone Care Team Providers Care Salvage Engineer Name Role Phone Jeannine Arias MD Primary Care Provider [phone] Encounter Details Date Type Department Care Team (Late st Contact Info) Description 05/09/2011 Documentation [facility] [address] [place] [address] Family Medicine, Physician [address] [place], [place] [id number] Social History Tobacco Use Types Packs/Day Years [...] on filedocumented in this encounter Care Teams Salvage Engineer Relationship Specialty Start Date End Date Jeannine Arias MD [address] [place], [place] [address] [address] PCP - General 01/03/17 documented as of this encounter
--- OUTSIDE RECORDS SUMMARY | 2024-07-26 10:38 | XMS_ITS | Encounter Summary ---
Author Organization [facility] Address [address] [place] [address] Phone Care Team Providers Care Tool Grinding Technician Name Role Phone Jeannine Arias MD Primary Care Provider [phone] Encounter Details Date Type Department Care Team (Late st Contact Info) Description 05/02/2011 Documentation [facility] [address] [place] [address] Family Medicine, Physician [address] [place], [place] [phone] Social History Tobacco Use Types Packs/Day Years [...] on filedocumented in this encounter Care Teams Tool Grinding Technician Relationship Specialty Start Date End Date Jeannine Arias MD [address] [place], [place] [address] [address] PCP - General 01/03/17 documented as of this encounter
--- OUTSIDE RECORDS SUMMARY | 2024-07-26 10:38 | XMS_ITS | Clinical Summary ---
Author Organization [facility] Address [address] [place] [address] Care Team Providers Care Casket Inspector Name Role Phone Unavailable Primary Care Provider Unavailabl e Immunizations Name Administration Dates Next Due Covid-19 (Pfizer) Dilution Required 10/04/2020,0 09/12/2020 Social History Tobacco Use Types Packs/Day Years Used Date Smoking Tobacco: Never Assessed Sex and Gender Information Value Date Recorded Sex Assigned at Male 09/12/2020 3:24 PM EDT Gender Identity Not on file Sexual Orientation Not on file Job Start Date Occupation Industry Not on file Not on file Not on file Plan of Treatment Health Maintenance Due Date Last Done Comments Hepatitis B Vaccines (1 of 3 - 3-dose series) 1993 Hepatitis C Screening 1993 Depression Screening 2005 Preventative Health Evaluation 2011 COVID-19 Vaccine ( season) 2024 10/04/2020, 09/12/2020 Influenza Vaccine (#1) 2024 9, 02/09/2008, 02/10/2007, Additional history exists DTap / Tdap / Td (9 - Td or Tdap) 08/09/2027 08/08/2017, 04/20/2011, 07/24/2005, Additional history exists Pneumococcal Vaccine Aged Out 02/20/2009 No long er eligible based on patient's age to complete this topic RSV Ped < 20 months Aged Out No longe r eligible based on patient's age to complete this topic
--- OUTSIDE RECORDS SUMMARY | 2024-07-26 10:38 | XMS_ITS | Encounter Summary ---
Author Organization [facility] Address [address] [place] [address] Phone Care Team Providers Care Ruby On Rails Developer Name Role Phone Jeannine Arias MD Primary Care Provider [phone] Encounter Details Date Type Department Care Team (Late st Contact Info) Description 08/26/2011 Documentation [facility] Family Medicine [address] [place] [address] Family Medicine, Physician [address] [place], [place] [address] Social History Tobacco Use Types Packs/Day Years [...] on filedocumented in this encounter Care Teams Ruby On Rails Developer Relationship Specialty Start Date End Date Jeannine Arias MD [address] [place], [place] [address] [address] PCP - General 01/03/17 documented as of this encounter
--- OUTSIDE RECORDS SUMMARY | 2024-07-26 10:38 | XMS_ITS | Encounter Summary ---
Author Organization [facility] Address [address] [place] [address] Phone Care Team Providers Care Keno Terminal Operator Name Role Phone Jeannine Arias MD Primary Care Provider [phone] Encounter Details Date Type Department Care Team (Late st Contact Info) Description 10/22/2013 Documentation [facility] Family Medicine [address] [place] [address] Family Medicine, Physician [address] [place], [place] [phone] Social History Tobacco Use Types Packs/Day Years [...] on filedocumented in this encounter Care Teams Keno Terminal Operator Relationship Specialty Start Date End Date Jeannine Arias MD [address] [place], [place] [address] [address] PCP - General 01/03/17 documented as of this encounter
--- OUTSIDE RECORDS SUMMARY | 2024-07-26 10:38 | XMS_ITS | Encounter Summary ---
Author Organization [employer] Address [address] [place] [address] [address] [place] [address] Care Team Providers Care Face Worker Name Role Phone Unavailable Primary Care Provider Unavailabl e Reason for Visit * Reason Onset Date Comments Nurse Triage 03/22/2024 Encounter Details Date Type Department Care Team (Late st Contact Info) Description 03/22/2024 Telephone [facility] [address] [place], [place] [phone] Merari Tejada MD [address] [place], [place] [phone] Nurse Triage Social History Tobacco Use Types Packs/Day Years Used Date Smoking Tobacco: Never Smokeless Tobacco: Never Alcohol Use Standard Drinks/Week Comments Not Currently 0 (1 standard drink = 0.6 oz pur e alcohol) Sex and Gender Information Value Date Recorded Sex Assigned at Male 07/04/2023 1:36 PM EST Legal Sex Male 1:32 PM EST Gender Identity Male 07/04/2023 1:36 PM EST Sexual Orientation Straight 07/04/2023 1: 36 PM EST documented as of this encounter Miscellaneous Notes * Telephone Encounter - Shayla Reddy RN - 03/22/2024 2:19 PM EDT Called pt. He states that yesterday his hands became painful and red after using chemicals at work,washing hands, and being in the cold. His hands are cracked and bleeding. Pt has been mixing Hydrocortisone cream with Cerave but it has been hurting his hands because they are so dry and cracked. Pt. States he has been trying to get a New Pt. Appt. But, he has not been assigned to anyone yet and he is getting frustrated. I advised pt. To go to [facility] walk in for now. Hours and days provided and I will send a message to Nayla mayorga to see who pt. Can be placed with for PCP. Pt. Did have a Newpt. Appt on 01/03/[address] Tejada but then in that note it states pt. Needs new PCP . Please advise. Protocol Used: Cracked or Dry Skin (Pediatric) Protocol-Based Disposition: See in Office or Video Visit within 3 Days- Advised walk in at [facility]. Positive Triage Question: * Cracks on hands and interferes with normal activities (e.g. school or sports) * All higher-acuity triage questions were negative Care Advice Discussed: * Reassurance and Education - Cracked Skin on Hands * Shallow Cracks - Use Ointment * Deep Cracks - Use Liquid Crack Sealer * Prevention of Cracks on the Hands * Expected Course * Reasons To Call Back * Telephone Encounter - Nahed Bonner - 03/22/2024 2:16 PM EDT Symptom: Hand or Wrist Pain - Not From Injury Outcome: Schedule an urgent appointment (within 1 hour) or talk to a nurse or provider soon Reason: Can't use the hand normally The caller accepted this outcome. Contact pt at [phone] documented in this encounter Plan of Treatment Not on file documented as of this encounter Visit Diagnoses Not on filedocumented in this encounter
--- OUTSIDE RECORDS SUMMARY | 2024-07-26 10:38 | XMS_ITS | Encounter Summary ---
Author Organization [facility] Address [address] [place] [address] Phone Care Team Providers Care Radio Dispatcher Name Role Phone Jeannine Arias MD Primary Care Provider [phone] Encounter Details Date Type Department Care Team (Late st Contact Info) Description 08/26/2011 Documentation EM Family Medicine [address] [place] [address] Family Medicine, Physician [address] [place], [place] [phone] Social History Tobacco Use Types Packs/Day Years [...] on filedocumented in this encounter Care Teams Radio Dispatcher Relationship Specialty Start Date End Date Jeannine Arias MD [address] [place], [place] [address] [address] PCP - General 01/03/17 documented as of this encounter
--- OUTSIDE RECORDS SUMMARY | 2024-07-26 10:38 | XMS_ITS | Encounter Summary ---
Author Organization [facility] Address [address] [place] [address] Phone Care Team Providers Care Chief Engineer Name Role Phone Jeannine Arias MD Primary Care Provider Encounter Details Date Type Department Care Team (Late st Contact Info) Description 11/11/2013 Documentation [facility] [place] Family Medicine [address] [place] [address] Family Medicine, Physician [address] [place], [place] [address] Social History Tobacco Use Types Packs/Day Years [...] on filedocumented in this encounter Care Teams Chief Engineer Relationship Specialty Start Date End Date Jeannine Arias MD [address] [place], [place] [address] [address] PCP - General 01/03/17 documented as of this encounter
--- OUTSIDE RECORDS SUMMARY | 2024-07-26 10:38 | XMS_ITS | Clinical Summary ---
Author Organization [facility] Address [address] [place] [address] Care Team Providers Care Trauma Registrar Name Role Phone Pcp, No Primary Care Provider Unavailabl e Allergies Active Allergy Reactions Criticality Noted Date Comments Albuterol Other (See Comments) 11/24/2018 Almost passed out. Cephalexin Other (See Comments) 11/24/2018 dizzy Medications Medication Sig Dispensed Refills Start Date End Date Status insulin aspart (NovoLOG) 100 UNIT/ML injection Inject under the skin 3 (three) times a day before meals. Active insulin detemir (LevEMIR) 100 UNITS/ML injection Inject under the skin nightly. Active insulin lispro (HumaLOG) 100 units/mL injection Inject under the skin 3 (three) times a day before meals. Active mupirocin (BACTROBAN) 2 % ointment 10/15/2018 Active Active Problems No known active problems Immunizations Name Administration Dates Next Due Tdap 08/08/2017 Family History Medical History Relation Name Comments Heart disease Father Lung cancer Maternal Grandfather Hypertension Mother Relation Name Status Comments Father Maternal Grandfather Mother Social History Tobacco Use Types Packs/Day Years Used Date Smoking Tobacco: Never Smokeless Tobacco: Never Alcohol Use Standard Drinks/Week Comments No 0 (1 standard drink = 0.6 oz pur e alcohol) Sex and Gender Information Value Date Recorded Sex Assigned at Not on file Gender Identity Not on file Sexual Orientation Not on file Last Filed Vital Signs Vital Sign Reading Time Taken Comments Blood Pressure 160/76 11/24/2018 2:17 PM EDT Pulse 80 11/24/2018 2:17 PM EDT Temperature 37.3 ??C (99.2 ??F) 11/24/2018 2:17 PM ED T Respiratory Rate - - Oxygen Saturation 96% 11/24/2018 2:28 PM EDT Inhaled Oxygen Concentration - - Weight 95.3 kg (210 lb) 11/24/2018 2:17 PM EDT Height 180.3 cm (5' 11 ) 11/24/2018 2:17 PM EDT Body Mass Index 29.29 11/24/2018 2:17 PM EDT Plan of Treatment Health Maintenance Due Date Last Done Comments Hepatitis C Virus Screening 1993 HIV Screening 2006 Hepatitis B Vaccines (1 of 3 - 19+ 3-dose series) 2012 COVID-19 Vaccine ( - season) 2024 06/06/2021, 10/04/2020, 09/12/2020 DTaP/Tdap/Td Vaccines (2 - Td or Tdap) 08/09/2027 08/08/2017 Influenza Vaccine Discontinued 04/24/2011, 01/22/2010 HPV Vaccines Aged Out No longer eligi ble based on patient's age to complete this topic Pneumococcal Vaccine: Pediatric (0-5 Years) and At-Risk Patients (6 to 49 Years) Aged Out No longer eligible b ased on patient's age to complete this topic Care Teams Trauma Registrar Relationship Specialty Start Date End Date Pcp, No PCP - General General Medicine 08/07/17
--- OUTSIDE RECORDS SUMMARY | 2024-07-26 10:38 | XMS_ITS | Encounter Summary ---
Author Organization [facility] Address [address] [place] [address] Phone Care Team Providers Care Cytology Technologist Name Role Phone Jeannine Arias MD Primary Care Provider [phone] Encounter Details Date Type Department Care Team (Late st Contact Info) Description 01/05/2014 Documentation [facility] Family Medicine [address] [place] [address] Family Medicine, Physician [address] [place], [place] [address] Social History Tobacco Use Types Packs/Day Years [...] on filedocumented in this encounter Care Teams Cytology Technologist Relationship Specialty Start Date End Date Jeannine Arias MD [address] [place], [place] [address] [address] PCP - General 01/03/17 documented as of this encounter
--- OUTSIDE RECORDS SUMMARY | 2024-07-26 10:38 | XMS_ITS | Data Portability ---
Author Organization [facility] [address] Address [address] [place] [address] Assessment No assessment recorded. Plan of Treatment Reminders Order Date Submit Date Provider Last Modified By Organization Details Last Modified Time Details Appointments None record ed. Lab None record ed. Referral None record ed. Procedures None record ed. Surgeries None record ed. Imaging None record ed. Medication Orders None record ed. Patient TargetsNo targets recorded. Patient InstructionsNo instructions recorded. Reason for Referral None Reported. Medical Equipment None Reported. Vitals None Recorded Social History None recorded. Functional Status None recorded. Mental Status None recorded. Family History Nothing Reported. Medical History No medical history recorded. Past Encounters Encounter ID Performer Location Encounter Start Date Encounter Closed Date Diagnosis/Indication Diagnosis SNOMED-CT Code Diagnosis ICD10 Code Diagnosis Note [id number] [address] [address] 01/06/2015 12:30:34 01/06/2015 13:40:35 [id number] [address] [address] 10/26/2019 16:56:58 10/26/2019 19:43:44 [id number] [address] [address] [address] 11/29/2019 18:04:19 11/29/2019 18:56:56 [id number] [address] [address] 02/01/2020 19:54:27 02/01/2020 20:09:32 [id number] [address] [address] 06/13/2017 08:30:41 06/13/2017 09:51:03 [id number] [address] [facility] [place] [address] 11/06/2019 11:14:48 11/06/2019 12:24:02 [id number] [address] [facility] [place] [address] 03/26/2021 12:06:11 03/26/2021 13:24:53 [id number] [address] [facility] [place] [address] 06/04/2017 17:28:46 06/04/2017 18:41:27 Health Concerns Section Related Observation LastModified by Organization Detai ls LastModified Time None Recorded Concern Status LastModified by Organization Details LastModified Time None Recorded Advance Directives Directive None Recorded Payers None recorded.
--- OUTSIDE RECORDS SUMMARY | 2024-07-26 10:38 | XMS_ITS | Encounter Summary ---
Author Organization [facility] Address [address] [place] [address] Care Team Providers Care Clip On Sunglasses Inspector Name Role Phone Pcp, No Primary Care Provider Unavailabl e Encounter Details Date Type Department Care Team (Late st Contact Info) Description 11/27/2018 Telephone [facility] [address] [place] [phone] [place] [address] [place] [address] Social History Tobacco Use Types Packs/Day Years [...] on filedocumented in this encounter Care Teams Clip On Sunglasses Inspector Relationship Specialty Start Date End Date Pcp, No PCP - General General Medicine 08/07/17 documented as of this encounter
--- OUTSIDE RECORDS SUMMARY | 2024-07-26 10:38 | XMS_ITS | Clinical Summary ---
Author Organization [employer] Address [address] [facility] [address] [place] [address] Care Team Providers Care Tumbler Plater Name Role Phone Unavailable Primary Care Provider Unavailabl e Allergies Active Allergy Reactions Criticality Noted Date Comments Albuterol Other 11/24/2018 Almost passed out. Cephalexin Other 11/24/2018 dizzy Sulfamethoxazole-Trimethoprim Rash Medium 2023 Bogdan David Medications * This document contains information received from the source organization and may not represent a complete record from that organization. triamcinolone (Kenalog) 0.1 % cream Apply topically if needed in the morning and at bedtime (pain and swelling). 30 g 2 4 Active glucagon 1 MG injection See Instructions, # 2 kit, Refills 11, Tot. Refills 11, Maintenance, Use as directed for type 1 diabetes PRN low blood sugar, 04/24/20 14:50:00 EST, Compound, 177.5, cm, 02/08/20 16:07:00 EDT, Height, 92.5, kg, 02/08/20 16:12:00 EDT, Dry Weight 0 Active FREESTYLE LITE test strip USE TO CHECK BLOOD SUGAR 3 TIMES PER DAY E10.65 4 Active insulin aspart FlexPen (NovoLOG) 100 UNIT/ML pen Use tid AC meals according to sliding scale per endocrinology 4 Active Tresiba FlexTouch 200 UNIT/ML injection INJECT 40 UNITS SUBCUTANEOUSLY ONCE DAILY. ROTATE INJECTION SITES REFILL TOO SOON Active Active Problems Problem Noted Date Diagnosed Date Cannabis use disorder 01/03/2024 Assessment & Plan (01/03/2024 1:06 PM EDT): Active, uses daily. Advised to only buy at authorized dispensaries, try to cut down as much as possible. We discussed re terminologist effects in memory, attention, liver etc. Fu at next appt , ro anxiety disorder. Screening for STD (sexually transmitted disease) 01/03/2024 Assessment & Plan (01/03/2024 1:07 PM EDT): D/w him re use of condom to prevent STDs and undesired . Agreed to STD testing Will discuss PrEP at next appt. Celiac disease 12/22/2023 Class 1 obesity 12/22/2023 Diabetes mellitus type 1 12/22/2023 Assessment & Plan (01/03/2024 1:01 PM EDT): It seems to be controlled, I will obtain records from [facility] [place] [facility] and do A1c when due. Continue on Tresiba + Lispro per endo Counseled re more frequent low calorie/carb meals. Check fgstk 3x daily at least or prn hypoglycemia sxs. He has glucagon with him. Encouraged physical activity as tolerated, keep snacks and water with him at all times FU in 1-2 months. 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 darryn fied surface antigen) 04/24/2011,01/22/2010 MMR 08/22/1997,05/04/1994 Meningococcal MCV4P ACYW-135 09/27/2011,07/25/19 06 Novel Racimmfmu-[id number], all formulations 03/21/2009 Pneumococcal Conjugate PCV 13 03/30/2018 Pneumococcal Polysaccharide PPSV23 02/20/2009 TD (adult), 2 Lf tetanus tox oid, preservative free, adsorbed 09/28/2015,04/20/2011 Tdap 08/08/2017,07/24/2005 Varicella 11/25/2007,07/05/1996 Social History Tobacco Use Types Packs/Day Years Used Date Smoking Tobacco: Never Smokeless Tobacco: Never Tobacco Cessation:Counseling Given: Not Answered Alcohol Use Standard Drinks/Week Comments Not Currently 0 (1 standard drink = 0.6 oz pur e alcohol) Sex and Gender Information Value Date Recorded Sex Assigned at Male 07/04/2023 1:36 PM EST Legal Sex Male 1:32 PM EST Gender Identity Male 07/04/2023 1:36 PM EST Sexual Orientation Straight 07/04/2023 1: 36 PM EST Last Filed Vital Signs Vital Sign Reading Time Taken Comments Blood Pressure 137/84 07/04/2023 2:32 PM EST Pulse 78 07/04/2023 2:32 PM EST Temperature 36.3 ??C (97.3 ??F) 07/04/2023 2:32 PM ES T Respiratory Rate 17 07/04/2023 2:32 PM EST Oxygen Saturation 98% 07/04/2023 2:32 PM EST Inhaled Oxygen Concentration - - Weight 97.6 kg (215 lb 3.2 oz) 07/04/2023 2:32 P M EST Height - - Body Mass Index - - Plan of Treatment Health Maintenance Due Date Last Done Comments Depression Screening 1993 Diabetes: Hemoglobin A1C 1993 HIV Screening 1993 Lipid Panel 1993 SDOH Screening 1993 Diabetes: Foot Exam 2003 Eye Exam 2003 Alcohol/Substance Use Screening 2005 Family Planning (PISQ) 2008 Hepatitis C Screening 2011 Diabetes: Urine Protein Screening 2012 Hepatitis A Vaccines (1 of 2 - Risk 2-dose series) 2012 COVID-19 Vaccine (3 - season) 2024 10/04/2020, 09/12/2020 Influenza Vaccine (#1) 2024 9, 03/30/2018, 05/10/2013, Additional history exists Tobacco Screening 01/02/2025 01/03/2024 DTaP/Tdap/Td Vaccines (10 - Td or Tdap) 08/09/2027 08/08/2017, 09/28/2015, 04/20/2011, Additional history exists Pneumococcal Vaccine: Pediatrics (0 to 5 Years) and At-Risk Patients (6 to 49) Years) (3 of 3 - PCV20 or PCV21) 2043 03/30/2018, 02/20/2009 Zoster Vaccines (1 of 2) 2043 RSV Patients and Patients Aged 60 years or older (1 - 1-dose 75+ series) 2068 Hepatitis B Vaccines Completed 05/04/1994, 1993, 1993 HIB Vaccines Completed 08/02/1994, 11/23, 1993, Additional history exists IPV Vaccines Completed 09/02/1998, 11/23, 1993, Additional history exists Meningococcal Vaccine Completed 09/27/2011, 006 HPV Vaccines Aged Out No longer eligi ble based on patient's age to complete this topic RSV under 20 months Aged Out No longe r eligible based on patient's age to complete this topic Rotavirus Vaccines Aged Out No longer eligible based on patient's age to complete this topic Insurance [facility] C3
--- OUTSIDE RECORDS SUMMARY | 2024-07-26 10:38 | XMS_ITS | Encounter Summary ---
Author Organization [facility] Address [address] [place] [address] Phone Care Team Providers Care Jacquard Twine Polisher Operator Name Role Phone Jeannine Arias MD Primary Care Provider [phone] Encounter Details Date Type Department Care Team (Late st Contact Info) Description 09/05/2011 Documentation [facility] Family Medicine [address] [place] [address] Family Medicine, Physician [address] [place], [place] [address] Social History Tobacco Use Types Packs/Day Years [...] on filedocumented in this encounter Care Teams Jacquard Twine Polisher Operator Relationship Specialty Start Date End Date Jeannine Arias MD [address] [place], [place] [address] [address] PCP - General 01/03/17 documented as of this encounter
== END 2024-07-26 10:15 | disposition home or self-care (01) ==
PROVIDERS: Visit Provider Student in an Organized Health Care Education/Training Program
DX: E10.65 Type 1 diabetes mellitus with hyperglycemia (principal); E78.2 Mixed hyperlipidemia; E66.811 Obesity, class 1
CPT/HCPCS: 95251; 99214

== ENCOUNTER → 2024-07-26 09:37 | Outpatient (BNVA) | payer OTHER, SELFPAY | PROVIDERS: Visit Provider Student in an Organized Health Care Education/Training Program | DX: E10.65 Type 1 diabetes mellitus with hyperglycemia (principal); E78.2 Mixed hyperlipidemia; E66.811 Obesity, class 1; Z68.32 Body mass index [BMI] 32.0-32.9, adult; Z79.4 Long term (current) use of insulin; Z79.899 Other long term (current) drug therapy | CPT/HCPCS: 82947 ==